=== PATIENT | female | born 1960 ===

== ENCOUNTER 2018-06-07 09:21 | Outpatient (CLI) | payer OTHER ==
[~2018-06-07 09:21] MED LIST: ADVAIR 5001 DISK W/1; CLARITIN10 MG PO; DIOVAN HCT 80-11 TAB PO; FLONASE16 GM NS; PREVACID30 MG PO; PROVENTIL0.5 ML/2.5; SINGULAIR10 MG PO; [UNRECOGNIZED DRUG - OTHER] PO
== END 2018-06-07 09:31 | disposition home or self-care (01) ==
LOC: RAD 09:21
DX: M12.88 Other specific arthropathies, not elsewhere classified, other specified site (principal); M19.90 Unspecified osteoarthritis, unspecified site; M46.47 Discitis, unspecified, lumbosacral region